=== PATIENT | male | born 1960 | race Caucasian/White ===

== ENCOUNTER 2018-05-03 00:48 | Emergency (ER) | payer OTHER ==
[~2018-05-03] VITALS: Ht 172.7 cm; Wt 86.6 kg
[~2018-05-03 00:48] MED LIST: CHOLESTEROL PILL; [UNRECOGNIZED DRUG - REMARK]
[2018-05-03 00:52] VITALS: TEMP 36.8; Ht 172.7 cm; Wt 86.6 kg
[2018-05-03] MEDS ORDERED: ALBUT/IPRATROP 3MG/0.5MG NEB 3 ML VIAL INH ONE (01:15)
[2018-05-03] MEDS ORDERED: PRED50TA PO (02:13)
[2018-05-03] MEDS ORDERED: ALBUTEROL HFA 8 GM INHALER INH ONE (02:15)
[2018-05-03 02:19] VITALS: BP 135/90; PULSE 91; O2SAT 94
--- NOTE | 2018-05-03 05:49 | EMERGENCY ROOM VISIT NOTE ---
History First contact with patient: 00:56 Chief Complaint: SHORTNESS OF BREATH Stated Complaint: BREATHING History of Present Illness The patient is a 58 year old male who presents to the Emergency Room with complaints of coughing and wheezing for the past 4 days. The patient states that he was at his normal baseline health until earlier in the week. The patient was hanging drywall and came into contact with some drywall dust. The patient has an old history of asthma that has not been exacerbated since he was a child. The patient states after he came into contact with the drywall dust he began having his symptoms. The patient has not had fever or chills. His coughing has worsened over the past 5 or 6 hours, prompting his presentation to the department. Patient does not have distinct chest pain or other symptoms. He rates his discomfort a 1/10. He has not taken anything [id number] for his symptoms. Review of Systems More than 10 systems were reviewed and otherwise negative with the exception of history of present illness. Past Medical/Surgical History Pediatric asthma Social History Smoking Status: Never Smoker Alcohol Use: occasionally Drug Use: none Marital Status: Occupation Status: employed Current/Historical Medications Scheduled Prednisone (Prednisone), 50 MG PO DAILY Miscellaneous Medications [Cholesterol Pill] [Gout Pill] Physical Exam Vital Signs Date Time Temp Pulse Resp B/P (MAP) Pulse Ox O2 Delivery O2 Flow Rate FiO2 05/03/18 02:19 91 18 135/90 94 05/03/18 00:52 36.8 79 18 134/81 96 Room Air Physical Exam VITALS: Vitals are noted on the nurse's note and reviewed by myself. Vital signs stable. GENERAL: Well-developed, well-nourished, white male, who is in no acute distress and resting comfortably. Patient is cooperative with the examination. HEAD: Normocephalic atraumatic. HEART: Regular rate and rhythm without murmurs gallops or rubs. LUNGS: Diffuse wheezing without rhonchi or crackles ABDOMEN: Positive normal bowel sounds x 4. Soft, nontender, without masses or organomegaly. No guarding or rebound tenderness. MUSCULOSKELETAL: No muscle atrophy, erythema, or edema noted. Full range of motion in all extremities. Medical Decision & Procedures Medications Administered Medications (Trade) Dose Ordered Sig/Emily Route Start Time Stop Time Status Last Admin Dose Admin Prednisone (PredniSONE TAB) 40 mg NOW STAT PO 05/03/18 01:03 05/03/18 01:05 DC 05/03/18 01:07 40 MG Albuterol/ Ipratropium (Duoneb) 3 ml NOW ONCE INH 05/03/18 01:15 05/03/18 01:16 DC 05/03/18 01:08 3 ML Albuterol (Ventolin Hfa Inhaler) 2 puffs NOW ONCE INH 05/03/18 02:15 05/03/18 02:16 DC 05/03/18 02:19 2 PUFFS ED Course Physical exam and history were performed. Nursing notes, EMR, and Medication List were personally reviewed. Patient appears to have diffuse wheezing with a cough for the past few days. The patient does not appear toxic on examination. He was given a DuoNeb treatment and oral prednisone here in the department. X-ray was performed and reviewed without acute process per my and my attendings review. On reevaluation the patient felt significantly better after treatment here in the department. His coughing had minimized, and his wheezing was nearly completely cleared. Overall the patient appears well for discharge home. I will place him on a short course of prednisone and give him an albuterol inhaler. The patient is to follow with his primary care physician in the next few days and was otherwise invited back to the ER with any new, worsening, or concerning symptoms. The chart was completed utilizing [employer] Voice Recognition Software. Grammatical errors, random word insertions, pronoun errors, and incomplete sentences are an occasional consequence of this system due to software limitations, ambient noise, and hardware issues. Any formal questions or concerns about the content, text, or information contained within the body of this dictation should be directly addressed to the provider for clarification. . Medical Decision Differential diagnosis: Etiologies such as infections, reactive airway disease, pneumonia, pneumothorax , COPD, CHF, cardiac ischemia, pulmonary embolism, musculoskeletal, gastrointestinal, as well as others were entertained. Impression Primary Impression: Acute bronchitis Departure Information Dispostion Home / Self-Care Condition GOOD Prescriptions Prednisone (Prednisone) 50 Mg Tab 50 MG PO DAILY for 4 Days, #4 TAB Prov: Samson Mcadams PA-C 05/03/18 Forms HOME CARE DOCUMENTATION FORM, IMPORTANT VISIT INFORMATION Patient Instructions My [facility] Additional Instructions You were seen and evaluated today on an emergency basis only. This is not a substitute for, or an effort to provide, complete comprehensive medical care. It is not possible to recognize and treat all injuries or illnesses in a single emergency department visit. For this reason it is recommended that you followup with your primary care physician with any ongoing or persisting symptoms. Use your albuterol inhaler. 2 puffs every 4-6 hours as needed for coughing or wheezing. Take prednisone as prescribed You are welcome to return to the emergency department anytime with new, worsening, or concerning symptoms.
--- NOTE | 2018-05-03 08:57 | DIAGNOSTIC IMAGING REPORT ---
TWO VIEW CHEST CLINICAL HISTORY: Cough and wheezing. FINDINGS: PA and lateral chest radiographs are obtained. No prior studies are available for comparison at the time of dictation. The cardiomediastinal silhouette is unremarkable. The lungs and pleural spaces are clear. There is no pneumothorax. The bony thorax appears intact. IMPRESSION: No active disease in the chest. Electronically signed by: Guicho Kang M.D. 05/03/2018 8:56 AM Dictated Date/Time: 05/03/2018 8:55 AM
== END 2018-05-03 02:20 | disposition home or self-care (01) ==
LOC: C.EDB 00:49 → C.EDA 02:20
DX: J20.9 Acute bronchitis, unspecified (principal)